=== PATIENT | female | born 1995 | race Two or more races ===

== ENCOUNTER 2018-04-17 01:52 | Inpatient (IN) | payer OTHER ==
[~2018-04-17] VITALS: Ht 149.9 cm; Wt 3.2 kg
[2018-04-17] MEDS ORDERED: PRENATAL TABLE1 EAC1 PO (07:05)
== END 2018-04-20 15:37 | DRG 788 ==
LOC: OB/GYN 01:52 → LDR 01:52 → OB/GYN 11:34
PROVIDERS: ADMIT Specialist
PROC: 4A1HXCZ Monitoring of Products of Conception, Cardiac Rate, External Approach (ICD-10-PCS; 2018-04-17)
PROC: 4A033R1 Measurement of Arterial Saturation, Peripheral, Percutaneous Approach (ICD-10-PCS; 2018-04-17)
PROC: 10D00Z1 Extraction of Products of Conception, Low, Open Approach (ICD-10-PCS; principal; 2018-04-17 08:00)
DX: O33.8 Maternal care for disproportion of other origin (principal); Z3A.39 39 weeks gestation of pregnancy; Z37.0 Single live birth